=== PATIENT | male | born 1950 | race Caucasian/White ===

== ENCOUNTER 2018-06-08 13:35 | Day surgery (SDC) | payer OTHER, MEDICARE ==
[2018-06-08] MEDS ORDERED: LR 1,000 ML IV ONE (14:16)
[2018-06-08] MEDS ORDERED: INDOMETHACIN 50 MG SUPP PR PRN (14:42)
--- NOTE | 2018-06-08 14:42 | PDGENHP ---
History & Physical Chief Complaint: abnl imaging History of Present Illness: 68 year old male presents for evaluation of a perisigmoid lesion seen on CT Pertinent Past, Social, Family History: PMHx: GOut, DM, high cholesterol. PSurghx: None Relevant Physical Exam: HEENT: anicteric. CV: RRR +s1s2. Lungs: CTAB. Abd: soft, nt, + bs Cardiorespiratory Assessment: ASA 2
[2018-06-08] MEDS ORDERED: NS 500 ML IV SCH (14:45)
[2018-06-08] MEDS ORDERED: PROPOFOL/EMULSION 500 MG/50 ML BOTTLE IV ONE (14:53)
[2018-06-08] MEDS ORDERED: HYDROCODONE/APAP 5/325 TAB PO PRN (15:02)
[2018-06-08] MEDS ORDERED: NALOXONE HCL 0.4 MG/ML INJ IVP PRN (15:02)
[2018-06-08] MEDS ORDERED: fentaNYL 100 MCG/2 ML INJ IVP PRN (15:02)
[2018-06-08] MEDS ORDERED: ONDANSETRON 4 MG/2 ML VIAL IVP PRN (15:02)
--- NOTE | 2018-06-08 15:02 | PDANEPAE ---
ANE History of Present Illness 68 year old male with abnormal CT for colonoscopy with ultrasound for removal of mass. ANE Past Medical History - Cardiovascular History Hx Hypertension: No Hx Arrhythmias: No Hx Chest Pain: No Hx Coronary Artery / Peripheral Vascular Disease: No Hx CHF / Valvular Disease: No Hx Palpitations: No - Pulmonary History Hx COPD: No Hx Asthma/Reactive Airway Disease: No Hx Recent Upper Respiratory Infection: No Hx Oxygen in Use at Home: No Hx Sleep Apnea: Yes Sleep Apnea Screening Result - Last Documented: Positive Pulmonary History Comment: RIMA +, uses Cpap - Neurologic History Hx Cerebrovascular Accident: No Hx Seizures: No Hx Dementia: No - Endocrine History Hx Diabetes: Yes Endocrine History Comment: checks blood glucose daily in AM - Renal History Hx Renal Disorders: No Renal History Comment: BPH. 'weak bladder' - Liver History Hx Hepatic Disorders: No - Neurological & Psychiatric Hx Hx Neurological and Psychiatric Disorders: No - Cancer History Hx Cancer: No - Congenital Disorder History Hx Congenital Disorders: No - GI History Hx Gastrointestinal Disorders: Yes Gastrointestinal History Comment: "fatty tissue in colon seen on CT scan" - Other Health History Other Health History: wears glasses. keratosis on scalp - Chronic Pain History Chronic Pain: No - Surgical History Prior Surgeries: oral surgery. torn retinal ANE Review of Systems Review of systems is: negative Review of Systems: - Exercise capacity METS (RN): 4 METS ANE Patient History - Allergies Allergies/Adverse Reactions: No Known Allergies Allergy (Verified 06/03/18 14:17) - Home Medications Home Medications: Allopurinol 06/03/18 [Last Taken 06/07/18] Atorvastatin Calcium 06/03/18 [Last Taken 06/07/18] Claritin 06/03/18 [Last Taken 06/07/18] Doxazosin Mesylate 06/03/18 [Last Taken 06/07/18] Fish Oil [place]-3 Softgel 06/03/18 [Last Taken 1 Week Ago ~06/01/18] Fluticasone Nasal 06/03/18 [Last Taken 06/07/18] Metformin HCl 06/03/18 [Last Taken 06/07/18] Minocycline HCl 06/03/18 [Last Taken 06/07/18] Multivitamin 06/03/18 [Last Taken 1 Week Ago ~06/01/18] Oxybutynin 06/03/18 [Last Taken 06/07/18] - NPO status NPO Since - Liquids (Date): 06/07/18 NPO Since - Liquids (Time): 20:00 NPO Since - Solids (Date): 06/07/18 NPO Since - Solids (Time): 08:30 - Smoking Hx Smoking Status: Former smoker - Family Anes Hx Family Hx Anesthesia Complications: none ANE Labs/Vital Signs - Vital Signs Blood Pressure: 123/86 Heart Rate: 82 Respiratory Rate: 17 O2 Sat (%): 94 Height: 175.26 cm Weight: 90.718 kg ANE Physical Exam - Airway Neck exam: FROM Mallampati Score: Class 2 Mouth exam: normal dental/mouth exam - Pulmonary Pulmonary: no respiratory distress - Cardiovascular Cardiovascular: regular rate and rhythym - ASA Status ASA Status: II ANE Anesthesia Plan Anesthesia Plan: MAC
[2018-06-08] MEDS ORDERED: levOFLOXACIN 500 MG/DEXTROSE 100 ML IV ONE (15:17)
[2018-06-08] MEDS ORDERED: PROPOFOL 200 MG/20 ML VIAL ONE (15:54)
[2018-06-08] MEDS ORDERED: levOFLOXACIN 500 MG/DEXTROSE/100 ML BAG IV ONE (16:06)
--- NOTE | 2018-06-08 16:16 | POSTANESTH ---
Post Anesthetic Evaluation Cardiovascular Status: Normal, Stable Respiratory Status: Normal, Stable Level of Consciousness/Mental Status: Mildly Sleepy, Arousable Pain Control: Adequate, Prn Tx Ordered Nausea/Vomiting Control: Adequate, Prn Tx Ordered Complications Possibly Related to Anesthesia: None Noted
--- NOTE | 2018-06-08 16:38 | GIREPORT ---
[facility] - Endoscopy Department Patient Name: Aston Lane Procedure Date: 06/08/2018 2:47 PM Patient Type: Outpatient Attending MD/ ER Physician: Aj Chandler MD Procedure: Lower EUS Indications: Suspected mass in colon (non-rectal) seen on CT scan Patient Profile: 68 year old male presents for evaluation of abnormal imaging. He had a CT scan which revealed an incidental 6cm perisigmoid complex lesion. Providers: Aj Chandler MD Medicines: Monitored Anesthesia Care Complications: No immediate complications. Estimated blood loss: Minimal. Description of Procedure: After obtaining informed consent, the endoscope was passed under direct vision. Throughout the procedure, the patient's blood pressure, pulse, and oxygen saturations were monitored continuously. The Endosonoscope was introduced through the anus and advanced to the sigmoid colon. The Colonoscope was introduced through the anus and advanced to the sigmoid colon for ultrasound. The lower EUS was accomplished without difficulty . The patient tolerated the procedure well. The quality of the bowel preparat ion was good. Findings: Hemorrhoids were found on perianal exam. ENDOSCOPIC FINDING: : A 3 mm polyp was found in the sigmoid colon. The polyp was sessile. The polyp was removed with a cold biopsy forceps. Resection and retrieval w ere complete. Multiple small and large-mouthed diverticula were found in the sigmoid colon. ENDOSONOGRAPHIC FINDING: : A anechoic lesion was found in the sigmoid colon. The endosonographic borders were well-defined. It measured about 52.3 x 48.6mm. It appeared to have a calcification in a small portion of the bilobed lesion (suspecte d cyst). No intramural growths or septations noted. The wall was thin. [place] Doppler imaging was utilized prior to needle puncture to confirm a lack of significant vascular structures within the needle path. Three passes we re made with the 25 gauge needle using a transcolonic approach. A stylet w as used. A ctylogst was present and on preliminary report appeared to be b enign. No lymph nodes were seen in the perirectal region and in the sigmoid re gion. Estimated Blood Loss: Estimated blood loss was minimal. Post Op Diagnosis: - Hemorrhoids found on perianal exam. - One 3 mm polyp in the sigmoid colon, removed with a cold biopsy force ps. Resected and retrieved. - Diverticulosis in the sigmoid colon. - A anechoic mass was visualized endosonographically in the sigmoid col on. Fine needle aspiration for fluid performed. - No lymph nodes were seen in the perirectal region and in the sigmoid region during endosonographic examination. - Etiology? Benign cyst versus other? Await cytology results. Consider repeat CT in 3 months if cytology unrevealing. Recommendation: - Discharge patient to home (with escort). - Advance diet as tolerated. - Continue present medications. - Await cytology results and await path results. - Ciprofloxacin 500mg PO BID x 3 days - Thank you for allowing me to participate in the care of your patient. Attending Participation: I personally performed the entire procedure. Aj Chandler MD Aj Chandler MD 06/08/2018 4:38:02 PM This report has been signed electronicallyAj Chandler MD Number of Addenda: 0 Note Initiated On: 06/08/2018 2:47 PM Total Procedure Duration Time 1 hour 0 minutes 10 seconds [email or web address]
[2018-06-08 17:20] VITALS: BP 130/92
== END 2018-06-08 17:25 | disposition home or self-care (01) ==
LOC: FSGY 13:35
PROVIDERS: ATTEND Internal Medicine Gastroenterology
DX: K62.89 Other specified diseases of anus and rectum (principal); K63.5 Polyp of colon; K64.9 Unspecified hemorrhoids; K57.30 Diverticulosis of large intestine without perforation or abscess without bleeding; M10.9 Gout, unspecified; E11.9 Type 2 diabetes mellitus without complications; E78.5 Hyperlipidemia, unspecified; G47.33 Obstructive sleep apnea (adult) (pediatric); N40.0 Benign prostatic hyperplasia without lower urinary tract symptoms; Z87.891 Personal history of nicotine dependence
CPT/HCPCS: J1956; J2704